=== PATIENT | male | born 1995 | race Hispanic/Latino ===

== ENCOUNTER 2018-11-29 09:41 | Emergency (ER) | payer SELFPAY ==
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
[2018-11-29] MEDS ORDERED: NA CHLORIDE 0.9% 1,000 ML ONE (11:35)
--- NOTE | 2018-11-29 21:03 | EKG ---
Test Date: 2018-11-29 Test Time: 09:46:54 Jigman: ROSALIE MEASUREMENT RESULTS: Intervals: Rate: 112 GA: 126 QRSD: 98 QT: 336 QTc: 458 [place]: P: 78 GA: 126 QRS: 92 T: 73 INTERPRETIVE STATEMENTS: Sinus tachycardia Rightward axis ST elevation, probably due to early repolarization Borderline ECG Compared to ECG 12/21/2014 21:26:18 Right-axis deviation now present ST (T wave) deviation now present Early repolarization now present Sinus bradycardia no longer present Electronically Signed On 11-29-18 21:02:07 CDT by Justino Martin
== END 2018-11-29 15:55 | disposition home or self-care (01) ==
LOC: ER 09:41
DX: S00.90XA Unspecified superficial injury of unspecified part of head, initial encounter (principal); S02.2XXA Fracture of nasal bones, initial encounter for closed fracture; S80.811A Abrasion, right lower leg, initial encounter; R41.82 Altered mental status, unspecified; F10.129 Alcohol abuse with intoxication, unspecified; Y04.2XXA Assault by strike against or bumped into by another person, initial encounter; Y93.9 Activity, unspecified; Y92.481 Parking lot as the place of occurrence of the external cause
CPT/HCPCS: 70450; 70486; 71260; 72125; 74177; 76377; 93005; 96360; 99285; J7030

== ENCOUNTER 2020-05-23 07:19 | Emergency (ER) | payer SELFPAY ==
--- NOTE | 2020-05-23 08:03 | EDPHYS ---
Physician Documentation [facility] Name: Pasquale Perez Age: 24 yrs Sex: Male : 1995 Arrival Date: 05/23/2020 Time: 07:21 Bed 18 Private MD: ED Physician Angel Torres HPI: 05/23 07:56 This 24 yrs old Male presents to ER via Ambulatory with complaints of knot on kwasi chest. 07:56 cyst on chest , sent in, present for a long time, years. Onset: The symptoms/episode kwasi began/occurred 3 year(s) ago. Severity of symptoms: At their worst the symptoms were very mild in the emergency department the symptoms are unchanged. The patient has not experienced similar symptoms in the past. Historical: - Allergies: 07:30 No Known Allergies; iw - Home Meds: 07:30 None [Active]; iw - PMHx: 07:30 None; iw - PSHx: 07:30 None; iw - Immunization history:: Adult Immunizations. - Social history:: Smoking status: . - Family history:: pertinent for. ROS: 07:56 Constitutional: Negative for fever, chills, and weight loss, Eyes: Negative for injury, kwasi pain, redness, and discharge, ENT: Negative for injury, pain, and discharge, Neck: Negative for injury, pain, and swelling, Cardiovascular: Negative for chest pain, palpitations, and edema, Respiratory: Negative for shortness of breath, cough, wheezing, and pleuritic chest pain, Abdomen/GI: Negative for abdominal pain, nausea, vomiting, diarrhea, and constipation, Back: Negative for injury and pain, : Negative for injury, bleeding, discharge, and swelling, MS/Extremity: Negative for injury and deformity, Neuro: Negative for headache, weakness, numbness, tingling, and seizure, Psych: Negative for depression, anxiety, suicide ideation, homicidal ideation, and hallucinations, Allergy/Immunology: Negative for hives, rash, and allergies, Endocrine: Negative for neck swelling, polydipsia, polyuria, polyphagia, and marked weight changes, Hematologic/Lymphatic: Negative for swollen nodes, abnormal bleeding, and unusual bruising. 07:56 Skin: Positive for cyst, lipoma. Exam: 07:56 Constitutional: This is a well developed, well nourished patient who is awake, alert, kwasi and in no acute distress. Head/Face: Normocephalic, atraumatic. Eyes: Pupils equal round and reactive to light, extra-ocular motions intact. Lids and lashes normal. Conjunctiva and sclera are non-icteric and not injected. Cornea within normal limits. Periorbital areas with no swelling, redness, or edema. ENT: Nares patent. No nasal discharge, no septal abnormalities noted. Tympanic membranes are normal and external auditory canals are clear. Oropharynx with no redness, swelling, or masses, exudates, or evidence of obstruction, uvula midline. Mucous membranes moist. Neck: Trachea midline, no thyromegaly or masses palpated, and no cervical lymphadenopathy. Supple, full range of motion without nuchal rigidity, or vertebral point tenderness. No Meningismus. Chest/axilla: Normal chest wall appearance and motion. Nontender with no deformity. No lesions are appreciated. Cardiovascular: Regular rate and rhythm with a normal S1 and S2. No gallops, murmurs, or rubs. Normal PMI, no JVD. No pulse deficits. Respiratory: Lungs have equal breath sounds bilaterally, clear to auscultation and percussion. No rales, rhonchi or wheezes noted. No increased work of breathing, no retractions or nasal flaring. Abdomen/GI: Soft, non-tender, with normal bowel sounds. No distension or tympany. No guarding or rebound. No evidence of tenderness throughout. Back: No spinal tenderness. No costovertebral tenderness. Full range of motion. Skin: Warm, dry with normal turgor. Normal color with no rashes, no lesions, and no evidence of cellulitis. MS/ Extremity: Pulses equal, no cyanosis. Neurovascular intact. Full, normal range of motion. Neuro: Awake and alert, GCS 15, oriented to person, place, time, and situation. Cranial nerves II-XII grossly intact. Motor strength 5/5 in all extremities. Sensory grossly intact. Cerebellar exam normal. Normal gait. Psych: Awake, alert, with orientation to person, place and time. Behavior, mood, and affect are within normal limits. 07:56 Skin: lipoma, no pain, mobile, no erythema. Vital Signs: 07:28 BP 120 / 73; Pulse 61; Resp 16; Temp 98.3; Pulse Ox 100% on R/A; iw MDM: 07:31 Patient medically screened. [facility] 07:58 Data reviewed: vital signs, nurses notes. Data interpreted: threat monitoring analyst: not kwasi applicable for this patient encounter. Pulse oximetry: on room air is 100 %. Administered Medications: No medications were administered Disposition: 05/23/20 08:02 Discharged to Home. Impression: Benign lipomatous neoplasm. - Condition is Stable. - Discharge Instructions: Lipoma. - Work release form, Medication Reconciliation Form, Thank You Letter, Antibiotic Education, Prescription Opioid Use form. - Follow up: Private Physician; When: 2 - 3 days; Reason: Recheck today's complaints, Continuance of care, Re-evaluation by your physician. Follow up: Dennys Finney MD; When: 2 - 3 days; Reason: Recheck today's complaints, Continuance of care, Re-evaluation by your physician. - Problem is new. - Symptoms have improved. Signatures: Angel Torres MD MD cha Williams, Irene, DEYVI RN iw Ruth Royal RN RN tw2 Corrections: (The following items were deleted from the chart) 08:13 08:02 05/23/2020 08:02 Discharged to Home. Impression: Benign lipomatous neoplasm. tw2 Condition is Stable. Forms are Medication Reconciliation Form, Thank You Letter, Antibiotic Education, Prescription Opioid Use. Follow up: Private Physician; When: 2 - 3 days; Reason: Recheck today's complaints, Continuance of care, Re-evaluation by your physician. Follow up: Dennys Finney; When: 2 - 3 days; Reason: Recheck today's complaints, Continuance of care, Re-evaluation by your physician. Problem is new. Symptoms have improved. kwasi
--- NOTE | 2020-05-23 08:03 | ER ---
Nurse's Notes [facility] Name: Pasquale Perez Age: 24 yrs Sex: Male : 1995 Arrival Date: 05/23/2020 Time: 07:21 Bed 18 Private MD: Diagnosis: Benign lipomatous neoplasm Presentation: 05/23 07:28 Chief complaint: Patient states: had some pain from a cyst on his chest that has been iw there for 5+years, was sent home from work yesterday and needs a note to go back today. Coronavirus screen: At this time, the client does not indicate any symptoms associated with coronavirus-19. Ebola Screen: Patient negative for fever greater than or equal to 101.5 degrees Fahrenheit, and additional compatible Ebola Virus Disease symptoms Patient denies exposure to infectious person. Patient denies travel to an Ebola-affected area in the 21 days before illness onset. No symptoms or risks identified at this time. Initial Sepsis Screen: Does the patient meet any 2 criteria? No. Patient's initial sepsis screen is negative. Does the patient have a suspected source of infection? No. Patient's initial sepsis screen is negative. Risk Assessment: Do you want to hurt yourself or someone else? Patient reports no desire to harm self or others. Onset of symptoms was 2015. 07:28 Method Of Arrival: Ambulatory iw 07:28 Acuity: TORRES 5 iw Triage Assessment: 08:12 General: Appears in no apparent distress. slender, Behavior is calm, cooperative, tw2 appropriate for age. Pain: Denies pain. Neuro: Level of Consciousness is awake, alert, obeys commands, Oriented to person, place, time, situation. Cardiovascular: Patient's skin is warm and dry. Respiratory: Airway is patent Respiratory effort is even, unlabored, Respiratory pattern is regular, symmetrical. GI: No signs and/or symptoms were reported involving the gastrointestinal system. : No signs and/or symptoms were reported regarding the genitourinary system. Derm: Reports "this knot on my chest and work wanted me to get it checked out". Historical: - Allergies: 07:30 No Known Allergies; iw - Home Meds: 07:30 None [Active]; iw - PMHx: 07:30 None; iw - PSHx: 07:30 None; iw - Immunization history:: Adult Immunizations. - Social history:: Smoking status: . - Family history:: pertinent for. Screenin:32 Abuse screen: Denies threats or abuse. Nutritional screening: No deficits noted. tw2 Tuberculosis screening: No symptoms or risk factors identified. Fall Risk None identified. Assessment: 07:37 General: Appears in no apparent distress. Behavior is calm, cooperative. iw 08:12 Reassessment: Patient appears in no apparent distress at this time. No changes from tw2 previously documented assessment. Patient and/or family updated on plan of care and expected duration. Pain level reassessed. Patient is alert, oriented x 3, equal unlabored respirations, skin warm/dry/pink. Vital Signs: 07:28 BP 120 / 73; Pulse 61; Resp 16; Temp 98.3; Pulse Ox 100% on R/A; iw ED Course: 07:21 Patient arrived in ED. as 07:30 Triage completed. iw 07:30 Arm band placed on. iw 07:31 Angel Torres MD is Attending Physician. kwasi 07:31 Bed in low position. Call light in reach. Pulse ox on. NIBP on. tw2 07:32 Ruth Royal, RN is Primary Nurse. tw2 08:00 Dennys Finney MD is Referral Physician. kwasi 08:12 No provider procedures requiring assistance completed. Patient did not have IV access tw2 during this emergency room visit. Administered Medications: No medications were administered Outcome: 08:02 Discharge ordered by . kwasi 08:12 Discharged to home ambulatory. tw2 08:12 Condition: stable 08:12 Discharge instructions given to patient, Instructed on discharge instructions, follow up and referral plans. Demonstrated understanding of instructions, follow-up care. 08:13 Patient left the ED. tw2 Signatures: Angel Torres MD MD cha Martinez, Amelia as Williams, Irene, RN RN iw Ruth Royal RN RN tw2
[2020-05-23 08:24] VITALS: BP 120/73; TEMP 98.3; O2SAT 100
== END 2020-05-23 08:13 | disposition home or self-care (01) ==
LOC: ER 07:19
DX: D17.9 Benign lipomatous neoplasm, unspecified (principal)
CPT/HCPCS: 99283

== ENCOUNTER 2021-03-08 11:20 | Emergency (ER) | payer SELFPAY ==
[2021-03-08] MEDS ORDERED: FENTANYL CITR 100 MCG/2 ML ONE (12:40)
[2021-03-08] MEDS ORDERED: propofoL 200 MG/20 ML VIAL IV ONE (12:41)
--- NOTE | 2021-03-08 14:03 | RAD REPORT ---
EXAM DESCRIPTION: RAD - Shoulder 1 View - 03/08/2021 1:37 pm FINDINGS: Single view left shoulder was obtained labeled post reduction. Internal rotation view shows left femoral head properly positioned in the glenohumeral joint space. A C joint is within normal range. No fracture or acute finding seen.
--- NOTE | 2021-03-08 14:38 | EDPHYS ---
Physician Documentation [facility] Name: Pasquale Perez Age: 25 yrs Sex: Male : 1995 Arrival Date: 03/08/2021 Time: 11:20 Bed 25 Private MD: ED Physician Kodak Medrano HPI: 03/08 12:40 This 25 yrs old Male presents to ER via Ambulatory with complaints of Shoulder kdr Injury. 12:40 The patient or guardian complains of decreased range of motion, deformity, pain, that kdr is acute, tenderness. left shoulder. Context: The problem was sustained at home, resulted from Patient was horse playing with his brother and fell on the shoulder. Onset: The symptoms/episode began/occurred suddenly, just prior to arrival. Modifying factors: the symptoms are alleviated by nothing. The symptoms are aggravated by movement. Associated signs and symptoms: The patient has no apparent associated signs or symptoms. Severity of symptoms: At their worst the symptoms were moderate, in the emergency department the symptoms are unchanged. Treatment prior to arrival includes: no previous treatment. The patient has not experienced similar symptoms in the past. The patient has not recently seen a physician. Historical: - Allergies: 12:07 No Known Allergies; jl7 - Home Meds: 12:07 None [Active]; jl7 - PMHx: 12:07 None; jl7 - PSHx: 12:07 None; jl7 - Immunization history:: Adult Immunizations unknown. - Social history:: Smoking status: Patient reports the use of cigarette tobacco products. ROS: 12:40 Constitutional: Negative for fever, chills, and weight loss, Eyes: Negative for injury, kdr pain, redness, and discharge, Neck: Negative for injury, pain, and swelling, Cardiovascular: Negative for chest pain, palpitations, and edema, Respiratory: Negative for shortness of breath, cough, wheezing, and pleuritic chest pain. 12:40 MS/extremity: Positive for injury or acute deformity, decreased range of motion, deformity, pain, tenderness, of the anterior aspect of left shoulder. Exam: 12:40 Constitutional: This is a well developed, well nourished patient who is awake, alert, kdr and in moderate distress. Head/Face: Normocephalic, atraumatic. 12:40 Musculoskeletal/extremity: Extremities: grossly normal except: noted in the anterior aspect of left shoulder: decreased ROM, deformity, pain, Obvious anterior dislocation by exam. Vital Signs: 11:59 BP 123 / 64; Pulse 53; Resp 20; Temp 98.5; Pulse Ox 100% ; Weight 49.9 kg; Height 5 ft. jl7 4 in. (162.56 cm); Pain 10/10; 12:46 BP 135 / 78; Pulse 64; Resp 21; Pulse Ox 100% on R/A; Pain 9/10; ap3 13:03 BP 112 / 72; Pulse 71; Resp 18; Pulse Ox 100% on R/A; ap3 13:05 BP 107 / 66; Pulse 74; Resp 17; Pulse Ox 100% on R/A; ap3 13:07 BP 110 / 60; Pulse 73; Resp 17; Pulse Ox 100% on R/A; ap3 13:11 BP 106 / 61; Pulse 56; Resp 16; Pulse Ox 100% on R/A; ap3 13:15 BP 101 / 62; Pulse 63; Resp 17; Pulse Ox 100% on R/A; ap3 13:19 BP 102 / 61; Pulse 63; Resp 16; Pulse Ox 100% on R/A; ap3 13:23 BP 112 / 71; Pulse 59; Resp 15; Pulse Ox 100% on R/A; ap3 14:30 BP 110 / 68; Pulse 54; Pulse Ox 99% on R/A; ap3 11:59 Body Mass Index 18.88 (49.90 kg, 162.56 cm) jl7 MDM: 12:40 Data reviewed: vital signs, nurses notes, radiologic studies. Counseling: I had a kdr detailed discussion with the patient and/or guardian regarding: the historical points, exam findings, and any diagnostic results supporting the discharge/admit diagnosis, radiology results. 14:37 Patient medically screened. kdr 03/08 13:35 Order name: Shoulder 1 View; Complete Time: 14:35 EDMS Administered Medications: 12:36 Drug: fentaNYL (PF) 50 mcg Route: IVP; Site: left forearm; ap3 13:32 Follow up: Response: No adverse reaction; Pain is decreased ap3 12:58 Drug: Propofol 200 mg {Note: by Dr. Medrano.} Route: IVP; Site: right forearm; ap3 13:32 Follow up: Response: No adverse reaction; RASS: Alert and Calm (0) ap3 Disposition Summary: 03/08/21 14:37 Discharge Ordered Location: Home kdr Problem: new kdr Symptoms: have improved kdr Condition: Stable kdr Diagnosis - Other dislocation of left shoulder joint kdr Followup: kdr - With: Private Physician - When: 2 - 3 days - Reason: If symptoms return, Further diagnostic work-up, Recheck today's complaints, Continuance of care, Re-evaluation by your physician Discharge Instructions: - Discharge Summary Sheet kdr - How to Use a Shoulder Immobilizer kdr - Shoulder Dislocation, [id number] kdr Forms: - Medication Reconciliation Form kdr - Thank You Letter kdr - Prescription Opioid Use kdr Prescriptions: - Tramadol 50 mg Oral Tablet - take 1 tablet by ORAL route every 8 hours as needed; 6 tablet; Refills: 0, kdr Product Selection Permitted Signatures: Dispatcher [employer] EDMS Kodak Medrano MD MD kdr Leal, Jahala, RN RN jl7 Brigitte Goodwin RN RN ap3 Corrections: (The following items were deleted from the chart) 13:35 12:37 Shoulder Left 2 View+[email or web address] ordered. EDMS EDMS
--- NOTE | 2021-03-08 14:38 | ER ---
Nurse's Notes [facility] Name: Pasquale Perez Age: 25 yrs Sex: Male : 1995 Arrival Date: 03/08/2021 Time: 11:20 Bed 25 Private MD: Diagnosis: Other dislocation of left shoulder joint Presentation: 03/08 11:59 Chief complaint: Patient states: Fell and dislocated left shoulder. Coronavirus screen: jl7 Client denies travel out of the [place] in the last 14 days. At this time, the client does not indicate any symptoms associated with coronavirus-19. Ebola Screen: No symptoms or risks identified at this time. Initial Sepsis Screen: Does the patient meet any 2 criteria? No. Patient's initial sepsis screen is negative. Does the patient have a suspected source of infection? No. Patient's initial sepsis screen is negative. Risk Assessment: Do you want to hurt yourself or someone else? Patient reports no desire to harm self or others. Onset of symptoms was March 08, 2021 at 11:00. 11:59 Method Of Arrival: Ambulatory [facility] 11:59 Acuity: TORRES 4 jl7 Triage Assessment: 12:07 General: Appears in no apparent distress. uncomfortable, Behavior is calm, cooperative, jl7 appropriate for age. Pain: Complains of pain in left shoulder Pain currently is 10 out of 10 on a pain scale. Musculoskeletal: Range of motion: limited in left shoulder. Injury Description: left shoulder dislocation. Historical: - Allergies: 12:07 No Known Allergies; jl7 - Home Meds: 12:07 None [Active]; jl7 - PMHx: 12:07 None; jl7 - PSHx: 12:07 None; jl7 - Immunization history:: Adult Immunizations unknown. - Social history:: Smoking status: Patient reports the use of cigarette tobacco products. Screenin:28 Abuse screen: Denies threats or abuse. Nutritional screening: No deficits noted. ap3 Tuberculosis screening: No symptoms or risk factors identified. Fall Risk None identified. Assessment: 12:36 General: Appears uncomfortable, Behavior is cooperative, appropriate for age, restless. ap3 Pain: Complains of pain in left shoulder Pain currently is 10 out of 10 on a pain scale. Neuro: Level of Consciousness is awake, alert, obeys commands, Oriented to person, place, time, situation, Appropriate for age. 12:48 General: conscious sedation equipment set up, and consent signed. . ap3 Vital Signs: 11:59 BP 123 / 64; Pulse 53; Resp 20; Temp 98.5; Pulse Ox 100% ; Weight 49.9 kg; Height 5 ft. jl7 4 in. (162.56 cm); Pain 10/10; 12:46 BP 135 / 78; Pulse 64; Resp 21; Pulse Ox 100% on R/A; Pain 9/10; ap3 13:03 BP 112 / 72; Pulse 71; Resp 18; Pulse Ox 100% on R/A; ap3 13:05 BP 107 / 66; Pulse 74; Resp 17; Pulse Ox 100% on R/A; ap3 13:07 BP 110 / 60; Pulse 73; Resp 17; Pulse Ox 100% on R/A; ap3 13:11 BP 106 / 61; Pulse 56; Resp 16; Pulse Ox 100% on R/A; ap3 13:15 BP 101 / 62; Pulse 63; Resp 17; Pulse Ox 100% on R/A; ap3 13:19 BP 102 / 61; Pulse 63; Resp 16; Pulse Ox 100% on R/A; ap3 13:23 BP 112 / 71; Pulse 59; Resp 15; Pulse Ox 100% on R/A; ap3 14:30 BP 110 / 68; Pulse 54; Pulse Ox 99% on R/A; ap3 11:59 Body Mass Index 18.88 (49.90 kg, 162.56 cm) jl7 ED Course: 11:20 Patient arrived in ED. mr 11:28 Kodak Medrano MD is Attending Physician. kdr 12:07 Triage completed. jl7 12:07 Arm band placed on right wrist. jl7 12:35 Brigitte Goodwin RN is Primary Nurse. ap3 12:35 Inserted saline lock: 20 gauge in right forearm, using aseptic technique. ap3 13:27 left shoulder reduction. ap3 13:29 Patient has correct armband on for positive identification. Bed in low position. Call ap3 light in reach. Side rails up X2. Adult w/ patient. manager monitoring on. Pulse ox on. NIBP on. Door closed. Noise minimized. 13:37 Shoulder 1 View In Process Unspecified. EDMS 15:10 IV discontinued, intact, bleeding controlled, No redness/swelling at site. Pressure zb dressing applied. Administered Medications: 12:36 Drug: fentaNYL (PF) 50 mcg Route: IVP; Site: left forearm; ap3 13:32 Follow up: Response: No adverse reaction; Pain is decreased ap3 12:58 Drug: Propofol 200 mg {Note: by Dr. Medrano.} Route: IVP; Site: right forearm; ap3 13:32 Follow up: Response: No adverse reaction; RASS: Alert and Calm (0) ap3 Outcome: 14:37 Discharge ordered by . kdr 15:09 Discharged to home ambulatory, with family. zb 15:09 Condition: stable 15:09 Discharge instructions given to patient, family, Instructed on discharge instructions, follow up and referral plans. Demonstrated understanding of instructions, follow-up care, medications, Prescriptions given X 1. 15:10 Patient left the ED. zb Signatures: Dispatcher [employer] EDMS Kodak Medrano MD MD kdr Rivera, Mary Hansa Pfeiffer RN RN jl7 Brigitte Goodwin RN RN ap3 Margret Olguin RN RN zb
[2021-03-08 15:22] VITALS: TEMP 98.5
[2021-03-08 15:40] VITALS: BP 110/68; O2SAT 99
== END 2021-03-08 15:10 | disposition home or self-care (01) ==
LOC: ER 11:20
PROC: 0RSKXZZ Reposition Left Shoulder Joint, External Approach (ICD-10-PCS; principal; 2021-03-08)
DX: S43.085A Other dislocation of left shoulder joint, initial encounter (principal); W50.0XXA Accidental hit or strike by another person, initial encounter; Y93.89 Activity, other specified; Y92.009 Unspecified place in unspecified non-institutional (private) residence as the place of occurrence of the external cause; F17.210 Nicotine dependence, cigarettes, uncomplicated
CPT/HCPCS: 73020; 99285; J2704; J3010

== ENCOUNTER 2021-04-19 06:09 | Emergency (ER) | payer SELFPAY ==
--- NOTE | 2021-04-19 07:16 | RAD REPORT ---
EXAM DESCRIPTION: CT - Head Brain Wo Cont - 04/19/2021 7:01 am CLINICAL HISTORY: Headache COMPARISON: 2019 TECHNIQUE: Computed axial tomography of the head was obtained. IV contrast was not requested. All CT scans are performed using dose optimization technique as appropriate and may include automated exposure control or mA/KV adjustment according to patient size. FINDINGS: An intracranial bleed is not seen . The ventricles are normal in caliber. No extra-axial fluid collection is noted. Fluid within the sinuses/ mastoids is not seen. The mastoids are clear A 11 millimeter low-density mass subcutaneous tissue anterior to the right ear unchanged from prior e xam. IMPRESSION: No acute intracranial abnormality is seen. If patient's symptoms persist MRI of the bra in would be recommended. A 11 millimeter low-density mass subcutaneous tissue anterior to the right ear. This is unchanged fro m the prior exam and may represent a cyst
--- NOTE | 2021-04-19 07:42 | ER ---
Nurse's Notes [facility] Name: Pasquale Perez Age: 25 yrs Sex: Male : 1995 Arrival Date: 04/19/2021 Time: 06:13 Bed 18 Private MD: Diagnosis: Acute lymphadenitis, unspecified Presentation: 04/19 06:28 Chief complaint: Patient states: lump behind right ear x 4 days. Coronavirus screen: df1 Vaccine status: Patient reports being unvaccinated. The client denies any previous COVID testing. Ebola Screen: Patient negative for fever greater than or equal to 101.5 degrees Fahrenheit, and additional compatible Ebola Virus Disease symptoms. Initial Sepsis Screen: Does the patient meet any 2 criteria? No. Patient's initial sepsis screen is negative. Risk Assessment: Do you want to hurt yourself or someone else? Patient reports no desire to harm self or others. Onset of symptoms was April 15, 2021. 06:28 Method Of Arrival: Ambulatory df1 06:28 Acuity: TORRES 3 df1 06:33 Note Pt presents with small lump behind right ear x 4 days. Pain increases with df1 movement. Denies any fall/injury. Historical: - Home Meds: 06:31 Unable to obtain [Active]; df1 - PMHx: 06:31 Anxiety; df1 - PSHx: 06:31 None; df1 - Immunization history:: Adult Immunizations up to date, Client reports having NOT received the Covid vaccine. - Social history:: Smoking status: Patient reports the use of cigarette tobacco products, smokes one-half pack cigarettes per day, Patient/guardian denies using alcohol, street drugs, IV drugs. Screenin:35 Abuse screen: Denies threats or abuse. Nutritional screening: No deficits noted. df1 Tuberculosis screening: No symptoms or risk factors identified. Fall Risk None identified. Assessment: 06:47 General: Appears in no apparent distress. comfortable, Behavior is calm, cooperative, jb4 appropriate for age, Reports having a constant ringing in the right ear.. Pain: Complains of pain in right ear Pain does not radiate. Pain currently is 0 out of 10 on a pain scale. at worst was 5 out of 10 on a pain scale. Quality of pain is described as pressure. Neuro: Level of Consciousness is awake, alert, obeys commands, Oriented to person, place, time, situation. Cardiovascular: Patient's skin is warm and dry. Respiratory: Airway is patent Respiratory effort is even, unlabored, Respiratory pattern is regular, symmetrical. GI: No signs and/or symptoms were reported involving the gastrointestinal system. : No signs and/or symptoms were reported regarding the genitourinary system. EENT: No signs and/or symptoms were reported regarding the EENT system. Derm: Skin is intact, Skin is pink, warm \T\ dry. Musculoskeletal: Circulation, motion, and sensation intact. Range of motion: intact in all extremities. Vital Signs: 06:28 BP 116 / 71; Pulse 64; Resp 18; Temp 99.1; Pulse Ox 99% on R/A; Weight 49.9 kg; Height df1 5 ft. 4 in. (162.56 cm); Pain 5/10; 07:41 BP 102 / 62; Pulse 72; Resp 16; Pulse Ox 98% ; Pain 0/10; tc5 06:28 Body Mass Index 18.88 (49.90 kg, 162.56 cm) df1 ED Course: 06:13 Patient arrived in ED. bp1 06:31 Triage completed. df1 06:36 Emilie Foley FNP-C is PHCP. kb 06:36 Angel Torres MD is Attending Physician. kb 06:47 Patient has correct armband on for positive identification. Call light in reach. Side jb4 rails up X 1. Pulse ox on. NIBP on. 07:01 CT Head Brain wo Cont In Process Unspecified. EDMS 07:30 Kaleigh Alonzo, RN is Primary Nurse. tc5 Administered Medications: No medications were administered Outcome: 07:41 Discharge ordered by . kb 07:55 Patient left the ED. tc5 Signatures: Dispatcher [employer] EDMS Emilie Foley FNP-C FNP-Ckb Bryson, James RN RN jb4 Belen Contreras Dawn df1 Kaleigh Alonzo, DEYVI CARNES tc5 Corrections: (The following items were deleted from the chart) 07:31 06:31 Allergies: No Known Allergies; df1 tc5
--- NOTE | 2021-04-19 07:42 | EDPHYS ---
Physician Documentation [facility] Name: Pasquale Perez Age: 25 yrs Sex: Male : 1995 Arrival Date: 04/19/2021 Time: 06:13 Bed 18 Private MD: ED Physician Angel Torers HPI: 04/19 06:42 This 25 yrs old Male presents to ER via Ambulatory with complaints of Neck kb Swelling. 06:42 The patient presents with pain, swelling. The complaints affect the right mastoid area. kb Onset: The symptoms/episode began/occurred 3 day(s) ago. Modifying factors: The symptoms are alleviated by nothing, the symptoms are aggravated by touching. Associated signs and symptoms: The patient has no apparent associated signs or symptoms. Severity of symptoms: At their worst the symptoms were moderate in the emergency department the symptoms are unchanged. The patient has not experienced similar symptoms in the past. The patient has not recently seen a physician. 06:44 Pt reports pain to right ear with pain, swelling and tenderness behind right ear that kb started 3-4 days ago. Pt has pre and postauricular lymphadenopathy, states the preauricular lymphadenopathy has been there for a long time and doesn't cause pain or bother him. . Historical: - Home Meds: 06:31 Unable to obtain [Active]; df1 - PMHx: 06:31 Anxiety; df1 - PSHx: 06:31 None; df1 - Immunization history:: Adult Immunizations up to date, Client reports having NOT received the Covid vaccine. - Social history:: Smoking status: Patient reports the use of cigarette tobacco products, smokes one-half pack cigarettes per day, Patient/guardian denies using alcohol, street drugs, IV drugs. ROS: 06:43 Constitutional: Negative for fever, chills, and weight loss. kb 06:43 ENT: Positive for ear pain, swelling and tenderness behind right ear. Exam: 06:42 Constitutional: This is a well developed, well nourished patient who is awake, alert, kb and in no acute distress. Head/Face: Normocephalic, atraumatic. Respiratory: Respirations even and unlabored. No increased work of breathing, no retractions or nasal flaring. Skin: Warm, dry with normal turgor. Normal color. MS/ Extremity: Pulses equal, no cyanosis. Neurovascular intact. Full, normal range of motion. Neuro: Awake and alert, GCS 15, oriented to person, place, time, and situation. Moves all extremities. Normal gait. Psych: Awake, alert, with orientation to person, place and time. Behavior, mood, and affect are within normal limits. 06:42 ENT: External ear(s): swelling, that is minimal, on the right mastoid area, Ear canal(s): are normal, TM's: are normal. 06:42 Neck: Lymph nodes: lymphadenopathy is appreciated, preauricular nodes, post auricular nodes. Vital Signs: 06:28 BP 116 / 71; Pulse 64; Resp 18; Temp 99.1; Pulse Ox 99% on R/A; Weight 49.9 kg; Height df1 5 ft. 4 in. (162.56 cm); Pain 5/10; 07:41 BP 102 / 62; Pulse 72; Resp 16; Pulse Ox 98% ; Pain 0/10; tc5 06:28 Body Mass Index 18.88 (49.90 kg, 162.56 cm) df1 MDM: 06:36 Patient medically screened. kb 06:42 Data reviewed: vital signs, nurses notes. Data interpreted: Pulse oximetry: on room air kb is 99 %. Interpretation: normal. 07:41 Counseling: I had a detailed discussion with the patient and/or guardian regarding: the kb historical points, exam findings, and any diagnostic results supporting the discharge/admit diagnosis, radiology results, the need for outpatient follow up, a family practitioner, to return to the emergency department if symptoms worsen or persist or if there are any questions or concerns that arise at home. 04/19 06:42 Order name: CT Head Brain wo Cont; Complete Time: 07:26 kb Administered Medications: No medications were administered Disposition: 21:15 Co-signature as Attending Physician, Angel Torres MD I agree with the assessment and kwasi plan of care. Disposition Summary: 04/19/21 07:41 Discharge Ordered Location: Home kb Condition: Stable kb Diagnosis - Acute lymphadenitis, unspecified kb Followup: kb - With: Emergency Department - When: As needed - Reason: Worsening of condition Followup: kb - With: Private Physician - When: 2 - 3 days - Reason: Recheck today's complaints, Continuance of care, Re-evaluation by your physician Discharge Instructions: - Discharge Summary Sheet kb - Lymphadenopathy kb Forms: - Medication Reconciliation Form kb - Thank You Letter kb - Antibiotic Education kb - Prescription Opioid Use kb Signatures: Dispatcher [employer] Emilie Wall, ANGELICA CHRISTINE-Angel Mack MD MD cha Furlich, Dawn df1 Kaleigh Alonzo, RN RN tc5 Corrections: (The following items were deleted from the chart) 07:31 06:31 Allergies: No Known Allergies; df1 tc5
[2021-04-19 08:04] VITALS: TEMP 99.1
[2021-04-19 08:05] VITALS: BP 102/62; O2SAT 98
== END 2021-04-19 07:55 | disposition home or self-care (01) ==
LOC: ER 06:09
DX: L04.0 Acute lymphadenitis of face, head and neck (principal); F17.210 Nicotine dependence, cigarettes, uncomplicated
CPT/HCPCS: 70450; 99283

== ENCOUNTER 2022-03-08 17:42 | Emergency (ER) | payer SELFPAY ==
--- NOTE | 2022-03-08 19:21 | RAD REPORT ---
EXAM DESCRIPTION: RAD - Shoulder Left 2 View - 03/08/2022 7:04 pm CLINICAL HISTORY: PAIN COMPARISON: No comparisons TECHNIQUE: Internal and external rotation views of the left shoulder were obtained. FINDINGS: Humeral head is dislocated anterior and inferior to the bony glenoid classically seen with anterior dislocation. No fracture changes seen. AC joint is normal in appearance. No acute or suspic ious findings. IMPRESSION: Anterior dislocation of the left humeral head.
[2022-03-08] MEDS ORDERED: IBUPROFEN 200 MG TAB PO ONE (19:33)
[2022-03-08] MEDS ORDERED: IBUPROFEN 400 MG TAB ONE (19:33)
--- NOTE | 2022-03-08 19:55 | ER ---
Nurse's Notes [facility] Name: Pasquale Perez Age: 26 yrs Sex: Male : 1995 Arrival Date: 03/08/2022 Time: 17:43 Bed Treatment Private MD: Diagnosis: Other dislocation of left shoulder joint, initial encounter Presentation: 03/08 18:12 Chief complaint: Patient states: "My Left shoulder tends to pop out a lot, the last vg1 time was in November" Stated was leaning against the bed and felt left shoulder pop out. Coronavirus screen: Vaccine status: Patient reports being unvaccinated. Client denies travel out of the [place] in the last 14 days. Ebola Screen: Patient denies exposure to infectious person. Patient denies travel to an Ebola-affected area in the 21 days before illness onset. Initial Sepsis Screen: Does the patient meet any 2 criteria? No. Patient's initial sepsis screen is negative. Does the patient have a suspected source of infection? No. Patient's initial sepsis screen is negative. Risk Assessment: Do you want to hurt yourself or someone else? Patient reports no desire to harm self or others. Onset of symptoms was March 08, 2022. 18:12 Method Of Arrival: Ambulatory vg1 18:12 Acuity: TORRES 3 vg1 Triage Assessment: 18:14 General: Appears uncomfortable, Behavior is calm, cooperative. Pain: Complains of pain vg1 in Left Shoulder Pain currently is 8 out of 10 on a pain scale. Pain began 3 hours ago. Musculoskeletal: Circulation, motion, and sensation intact. Historical: - Allergies: 18:14 No Known Allergies; vg1 - Home Meds: 18:14 Alprazolam Oral [Active]; vg1 - PMHx: 18:14 Anxiety; vg1 - PSHx: 18:14 None; vg1 - Immunization history:: Client reports having NOT received the Covid vaccine. - Social history:: Smoking status: Reported history of juuling and/or vaping. Vital Signs: 18:12 BP 119 / 65; Pulse 65; Resp 17; Temp 97.9; Pulse Ox 100% on R/A; Weight 53.52 kg; vg1 Height 5 ft. 4 in. (162.56 cm); Pain 8/10; 18:12 Body Mass Index 20.25 (53.52 kg, 162.56 cm) vg1 ED Course: 17:43 Patient arrived in ED. rg4 17:44 Angel Michel PA is PHCP. cp 17:44 Farhat Nolan MD is Attending Physician. cp 18:14 Triage completed. vg1 18:14 Arm band placed on. vg1 19:06 XRAY Shoulder LEFT 2 view In Process Unspecified. EDMS 19:35 Emma Curiel, RN is Primary Nurse. sm5 19:54 Fady Lynch MD is Referral Physician. cp Administered Medications: 19:25 Drug: Ibuprofen 600 mg Route: PO; sm5 Outcome: 19:55 Discharge ordered by . cp 20:07 Patient left the ED. tw5 Signatures: Dispatcher [employer] EDMS Angel Michel PA PA cp Garcia, Rubi rg4 Socorro Pozo, RN RN vg1 Margaret Ziegler tw5 Emma Curiel, RN RN 5
--- NOTE | 2022-03-08 19:55 | EDPHYS ---
Physician Documentation [facility] Name: Pasquale Perez Age: 26 yrs Sex: Male : 1995 Arrival Date: 03/08/2022 Time: 17:43 Bed Treatment Private MD: ED Physician Farhat Nolan HPI: 03/08 18:30 This 26 yrs old Male presents to ER via Ambulatory with complaints of Arm cp Injury. 18:30 The patient or guardian complains of decreased range of motion, deformity, pain, that cp is acute. The complaints affect the left shoulder. Context: The problem was sustained at home, patient reports history of frequent dislocations of left shoulder. today leaning against bed when he felt left shoulder dislocate. Onset: The symptoms/episode began/occurred 2 hour(s) ago. Treatment prior to arrival includes: no previous treatment. Associated signs and symptoms: The patient has no apparent associated signs or symptoms. Historical: - Allergies: 18:14 No Known Allergies; vg1 - Home Meds: 18:14 Alprazolam Oral [Active]; vg1 - PMHx: 18:14 Anxiety; vg1 - PSHx: 18:14 None; vg1 - Immunization history:: Client reports having NOT received the Covid vaccine. - Social history:: Smoking status: Reported history of juuling and/or vaping. ROS: 18:33 Constitutional: Negative for body aches, chills, fever, poor PO intake. cp 18:33 Eyes: Negative for injury, pain, redness, and discharge. cp 18:33 ENT: Negative for drainage from ear(s), ear pain, sore throat, difficulty swallowing, difficulty handling secretions. 18:33 Cardiovascular: Negative for chest pain, edema, palpitations. 18:33 Respiratory: Negative for cough, shortness of breath, wheezing. 18:33 Abdomen/GI: Negative for abdominal pain, nausea, vomiting, and diarrhea. 18:33 Back: Negative for pain at rest, pain with movement. 18:33 MS/extremity: Positive for decreased range of motion, deformity, pain, of the left shoulder, Negative for paresthesias. 18:33 Neuro: Negative for numbness. 18:33 All other systems are negative. Exam: 18:35 Constitutional: The patient appears in no acute distress, alert, awake, cp non-diaphoretic, non-toxic, well developed, well nourished, uncomfortable. 18:35 Head/Face: Normocephalic, atraumatic. cp 18:35 Neck: C-spine: vertebral tenderness, is not appreciated, crepitus, is not appreciated, ROM/movement: is normal, is supple, without pain, no range of motions limitations. 18:35 Chest/axilla: Inspection: normal, Palpation: is normal, no crepitus, no tenderness. 18:35 Cardiovascular: Rate: normal, Rhythm: regular. 18:35 Respiratory: the patient does not display signs of respiratory distress, Respirations: normal, no use of accessory muscles, no retractions, labored breathing, is not present, Breath sounds: are clear throughout, no decreased breath sounds, no stridor, no wheezing. 18:35 Abdomen/GI: Inspection: abdomen appears normal, Palpation: abdomen is soft and non-tender, in all quadrants. 18:35 Back: pain, is absent, ROM is normal. 18:35 Musculoskeletal/extremity: Extremities: noted in the left shoulder: decreased ROM, deformity, pain, tenderness, ROM: limited active range of motion, in the left shoulder, Pulses: noted to be 2+ in the left radial artery, Perfusion: the extremity is normally perfused throughout, the left arm Sensation intact. 18:35 Neuro: Orientation: to person, place \T\ time. Mentation: is normal. Vital Signs: 18:12 BP 119 / 65; Pulse 65; Resp 17; Temp 97.9; Pulse Ox 100% on R/A; Weight 53.52 kg; vg1 Height 5 ft. 4 in. (162.56 cm); Pain 8/10; 18:12 Body Mass Index 20.25 (53.52 kg, 162.56 cm) vg1 Procedures: 19:50 Reduction: of the left shoulder, using traction, Patient tolerated well. Post reduction cp film - refused by patient. patient observed with full active ROM of left shoulder post reduction procedure. MDM: 19:12 Patient medically screened. cp 19:52 Data reviewed: vital signs, nurses notes, radiologic studies, plain films. ED course: cp post reduction xrays of left shoulder ordered and patient left ED prior to repeat xrays. 03/08 18:13 Order name: XRAY Shoulder LEFT 2 view; Complete Time: 19:23 cp 03/08 19:24 Interpretation: Report reviewed. cp 03/08 19:12 Order name: Shoulder Immobilizer cp Administered Medications: 19:25 Drug: Ibuprofen 600 mg Route: PO; sm5 Disposition Summary: 03/08/22 19:55 Discharge Ordered Location: Home cp Problem: new cp Symptoms: have improved cp Condition: Stable cp Diagnosis - Other dislocation of left shoulder joint, initial encounter cp Followup: cp - With: Fady Lynch MD - When: 2 - 3 days - Reason: Recheck today's complaints Discharge Instructions: - Discharge Summary Sheet cp - Shoulder Dislocation cp Forms: - Medication Reconciliation Form cp - Thank You Letter cp - Antibiotic Education cp - Prescription Opioid Use cp Prescriptions: - Ibuprofen 600 mg Oral Tablet - take 1 tablet by ORAL route every 8 hours As needed take with food; 30 tablet; cp Refills: 0, Product Selection Permitted Addendum: 03/10/2022 14:04 Attestation: The patient's history, exam findings, diagnostics, and a summary of any j r11 interventions or procedures was reviewed in detail with Angel RESENDIZ. Signatures: Dispatcher [employer] EDMS Angel Michel PA PA cp Garcia, Victoria RN RN vg1 Emma Curiel RN RN sm5 Farhat Nolan MD MD [id number] Corrections: (The following items were deleted from the chart) 03/08 20:06 19:26 Shoulder Left 2 View+[email or web address] ordered. EDMO EDMS
[2022-03-08 20:24] VITALS: BP 119/65; TEMP 97.9; O2SAT 100
== END 2022-03-08 20:07 | disposition home or self-care (01) ==
LOC: ER 17:42
PROC: 0RSKXZZ Reposition Left Shoulder Joint, External Approach (ICD-10-PCS; principal; 2022-03-08)
DX: S43.085A Other dislocation of left shoulder joint, initial encounter (principal); F41.9 Anxiety disorder, unspecified
CPT/HCPCS: 99283

== ENCOUNTER 2023-07-07 11:49 | Emergency (ER) | payer SELFPAY ==
--- NOTE | 2023-07-07 12:12 | ER ---
Nurse's Notes [facility] Name: Pasquale Perez Age: 27 yrs Sex: Male : 1995 Arrival Date: 07/07/2023 Time: 11:49 Bed Waiting Private MD: Diagnosis: Presentation: 07/07 11:59 Note Pt seen walking out of ER. cm10 ED Course: 11:51 Patient arrived in ED. rg4 11:55 Nancy Olguin [facility]-C [facility]. sb4 11:55 Que Villagomez MD is Attending Physician. sb4 11:56 Patient's name was called from ER lobby. No response. cm10 12:10 Nancy Olguin PA-C is PHCP. sb4 12:10 Que Villagomez MD is Attending Physician. sb4 Administered Medications: No medications were administered Outcome: 12:11 Patient left the ED. cm10 Signatures: Jesica Pozo rg4 Nancy Olguin PA-C PA-C sb4 Zoila Teixeira, RN RN cm10
--- NOTE | 2023-07-08 12:12 | EDPHYS ---
Physician Documentation [facility] Name: Pasquale Perez Age: 27 yrs Sex: Male : 1995 Arrival Date: 07/07/2023 Time: 11:49 Bed Waiting Private MD: ED Physician Que Villagomez HPI: 07/07 19:38 This 27 yrs old Male presents to ER via Unassigned with complaints of Hand sb4 Injury. 19:38 pt left prior to my assessment. sb4 MDM: 11:56 Patient medically screened. sb4 Administered Medications: No medications were administered Disposition: 19:38 Chart complete. sb4 19:54 Co-signature as Attending Physician, Que Villagomez MD. rn Disposition Summary: 07/07/23 12:11 Eloped Notes: Disposition: before being seen by provider cm10 Reason: unknown cm10 Signatures: Que Villagomez MD MD rn Brown, Sophia, PA-C PAJero sb4 Zoila Teixeira RN RN cm10
== END 2023-07-07 12:11 | disposition left against medical advice (07) ==
LOC: ER 11:49
DX: Z02.9 Encounter for administrative examinations, unspecified (principal)

== ENCOUNTER 2023-11-30 16:38 | Emergency (ER) | payer SELFPAY ==
[2023-11-30] MEDS ORDERED: MORPHINE 4 MG/ML SYR ONE (18:13)
[2023-11-30] MEDS ORDERED: KETOROLAC 30 MG/ML INJ ONE (18:13)
--- NOTE | 2023-11-30 19:04 | EDPHYS ---
Physician Documentation [facility] Name: Pasquale Perez Age: 27 yrs Sex: Male : 1995 Arrival Date: 11/30/2023 Time: 16:38 Bed 9 Private MD: VIJAY Physician Angel Torres HPI: 11/29 17:30 This 27 yrs old Male presents to ER via Ambulatory with complaints of Shoulder cp Injury. 17:30 The patient or guardian complains of decreased range of motion, an injury, pain, that cp is acute, tenderness. left shoulder. Context: resulted from a fall, The patient experiences decreased range of motion, when attempts to raise arm. Onset: The symptoms/episode began/occurred yesterday, from fall. Associated signs and symptoms: Pertinent negatives: abdominal pain, chest pain, neck pain, shortness of breath, Weakness in left hand and left arm. Historical: - Allergies: 17:12 No Known Allergies; nj1 - PMHx: 17:12 Anxiety; nj1 - Immunization history:: Client reports having NOT received the Covid vaccine. - Infectious Disease History:: Denies. CDIFF, C. Auris, ESBL, MRSA (w/in 1 year), VRE (w/in 1 year), TB, . - Social history:: Smoking status: Patient reports the use of cigarette tobacco products, denies chronic smoking, but will smoke occasionally, Reported history of juuling and/or vaping. ROS: 17:35 Constitutional: Negative for body aches, chills, fever, poor PO intake, cp 17:35 Neck: Negative for pain with movement, pain at rest, stiffness, 17:35 Cardiovascular: Negative for chest pain, edema, palpitations, 17:35 Respiratory: Negative for cough, shortness of breath, wheezing, 17:35 Abdomen/GI: Negative for abdominal pain, vomiting, diarrhea, constipation, 17:35 Back: Negative for pain at rest, pain with movement, 17:35 MS/extremity: Positive for injury or acute deformity, decreased range of motion, pain, of the left shoulder, 17:35 Neuro: Negative for dizziness, headache, syncope, near syncope, weakness, 17:35 All other systems are negative, Exam: 17:40 Constitutional: The patient appears in no acute distress, alert, awake, non-toxic, well cp developed, well nourished, uncomfortable, 17:40 Head/Face: Normocephalic, atraumatic. cp 17:40 Neck: C-spine: vertebral tenderness, is not appreciated, crepitus, is not appreciated, ROM/movement: is normal, is supple, without pain, no range of motions limitations, 17:40 Chest/axilla: Inspection: normal, Palpation: is normal, no crepitus, no tenderness, 17:40 Cardiovascular: Rate: normal, Rhythm: regular, Pulses: Pulses are 2+ in left radial artery. 17:40 Respiratory: the patient does not display signs of respiratory distress, Respirations: normal, Breath sounds: are clear throughout, 17:40 Abdomen/GI: Inspection: abdomen appears normal, Palpation: abdomen is soft and non-tender, in all quadrants, 17:40 Back: pain, is absent, ROM is normal, 17:40 Musculoskeletal/extremity: Extremities: grossly normal except: noted in the left distal clavicle: deformity, pain, ROM: limited passive range of motion due to pain, in the left shoulder, the left shoulder Sensation intact. 17:40 Neuro: Orientation: to person, place \T\ time. Mentation: is normal, Vital Signs: 17:10 BP 141 / 118; Pulse 90; Resp 18; Temp 98.3(O); Pulse Ox 96% on R/A; Weight 72.57 kg; nj1 Height 5 ft. 4 in. ; Pain 10/10; 18:21 BP 117 / 79; Pulse 84; Resp 18; Pulse Ox 98% ; cp4 17:10 Body Mass Index 27.46 (72.57 kg, 162.56 cm) nj1 17:10 Pain Scale: Adult nj1 MDM: 17:17 Patient medically screened. cp 18:00 Differential diagnosis: Anterior dislocation with fracture, Anterior dislocation cp without fracture, Posterior dislocation with fracture, Posterior dislocation without fracture, clavicle fracture, AC joint separation. 19:04 Data reviewed: vital signs, nurses notes, radiologic studies, plain films, and as a cp result, I will discharge patient. 19:04 I considered the following discharge prescriptions or medication management in the cp emergency department Medications were administered in the Emergency Department. See MAR. Independent interpretation of the following test(s) in the Emergency Department X-Ray: My interpretation is images of left shoulder show distal clavicle fracture. Counseling: I had a detailed discussion with the patient and/or guardian regarding the historical points, exam findings, and any diagnostic results supporting the discharge/admit diagnosis, radiology results, the need for outpatient follow up, a orthopedic surgeon, to return to the emergency department if symptoms worsen or persist or if there are any questions or concerns that arise at home. Response to treatment: the patient's symptoms have markedly improved after treatment, and as a result, I will discharge patient. 11/29 17:17 Order name: XRAY Shoulder LEFT 2 view cp 11/29 17:17 Order name: Sling; Complete Time: 17:19 cp Administered Medications: 18:21 Drug: Ketorolac IM 30 mg IM once Route: IM; Site: right ventrogluteal; cp4 19:12 Follow up: Response: No adverse reaction cp4 18:21 Drug: morphine IM 4 mg IM once Route: IM; Site: right deltoid; cp4 19:12 Follow up: Response: No adverse reaction cp4 Disposition Summary: 11/30/23 19:04 Discharge Ordered Notes: Location: Home cp Problem: new cp Symptoms: have improved cp Condition: Stable cp Diagnosis - Displaced fracture of lateral end of left clavicle, initial encounter for closed cp fracture Followup: cp - With: Fady Lynch MD - When: 2 - 3 days - Reason: left clavicle fracture Discharge Instructions: - Discharge Summary Sheet cp - Clavicle Fracture cp - How to Use a Sling cp Forms: - Medication Reconciliation Form cp - Antibiotic Education cp - Prescription Opioid Use cp - Patient Portal Instructions cp - Leadership Thank You Letter cp Prescriptions: - Diclofenac Sodium 75 mg Oral Tablet Sustained Release - take 1 tablet ORAL route 2 times per day; 30 tablet; Refills: 0, Product cp Selection Permitted - Tramadol 50 mg Oral Tablet - take 1 tablet ORAL route every 8 hours as needed; 12 tablet; Refills: 0, cp Product Selection Permitted Signatures: Dispatcher [employer] Angel Mendoza PA PA cp Darlene Aragon RN RN Felicity Carmen cp4 Corrections: (The following items were deleted from the chart) 11/30 16:47 16:43 MS/extremity: Positive for injury or acute deformity, decreased range of motion, cp pain, of the left shoulder, cp 16:47 16:43 Back: Negative for pain at rest, pain with movement, cp cp 16:47 16:43 Neck: Negative for pain with movement, pain at rest, stiffness, cp cp 16:47 16:43 Respiratory: Negative for cough, shortness of breath, wheezing, cp cp 16:47 16:43 Abdomen/GI: Negative for abdominal pain, vomiting, diarrhea, constipation, cp cp 16:47 16:43 Cardiovascular: Negative for chest pain, edema, palpitations, cp cp 16:47 16:43 Constitutional: Negative for body aches, chills, fever, poor PO intake, cp cp 16:47 16:43 Neuro: Negative for dizziness, headache, syncope, near syncope, weakness, cp cp 16:47 16:43 All other systems are negative, cp cp
--- NOTE | 2023-11-30 19:04 | ER ---
Nurse's Notes [facility] Name: Pasquale Perez Age: 27 yrs Sex: Male : 1995 Arrival Date: 11/30/2023 Time: 16:38 Bed 9 Private MD: Diagnosis: Displaced fracture of lateral end of left clavicle, initial encounter for closed fracture Presentation: 11/29 17:10 Chief complaint: Patient states: Fell yesterday and has had left shoulder "out of [facility]" since. Coronavirus screen: Vaccine status: Patient reports being unvaccinated. Ebola Screen: Patient denies travel to an Ebola-affected area in the 21 days before illness onset. Initial Sepsis Screen: Does the patient meet any 2 criteria? HR > 90 bpm. No. Patient's initial sepsis screen is negative. Does the patient have a suspected source of infection? No. Patient's initial sepsis screen is negative. Risk Assessment: Do you want to hurt yourself or someone else? Patient reports no desire to harm self or others. Onset of symptoms was November 29, 2023. 17:10 Method Of Arrival: Ambulatory [facility] 17:10 Acuity: TORRES 3 nj1 Triage Assessment: 17:13 General: Appears in no apparent distress. uncomfortable, Behavior is calm, cooperative, nj1 appropriate for age. Pain: Complains of pain in left shoulder Pain currently is 10 out of 10 on a pain scale. 19:12 Injury Description: contusion. cp4 Historical: - Allergies: 17:12 No Known Allergies; nj1 - PMHx: 17:12 Anxiety; nj1 - Immunization history:: Client reports having NOT received the Covid vaccine. - Infectious Disease History:: Denies. CDIFF, C. Auris, ESBL, MRSA (w/in 1 year), VRE (w/in 1 year), TB, . - Social history:: Smoking status: Patient reports the use of cigarette tobacco products, denies chronic smoking, but will smoke occasionally, Reported history of juuling and/or vaping. Screenin:19 [facility] ED Fall Risk Assessment (Adult) History of falling in the last 3 months, cp4 including since admission No falls in past 3 months (0 pts). [facility] ED Fall Risk Assessment (Adult) History of falling in the last 3 months, including since admission No falls in past 3 months (0 pts) Confusion or Disorientation No (0 pts) Intoxicated or Sedated No (0 pts) Impaired Gait No (0 pts) Mobility Assist Device Used No (0 pt) Altered Elimination No (0 pt) Score/Fall Risk Level 0 - 2 = Low Risk Oriented to surroundings, Maintained a safe environment, Assessed \\T\\ reinforced patient's understanding of fall precautions, Hourly rounding (assess needs \\T\\ fall precautionary measures) done. Abuse screen: Denies threats or abuse. Nutritional screening: No deficits noted. Tuberculosis screening: No symptoms or risk factors identified. Assessment: 18:19 General: Appears uncomfortable, Behavior is calm, cooperative, appropriate for age. cp4 Pain: Complains of pain in left shoulder. Musculoskeletal: Reports pain in left shoulder. Vital Signs: 17:10 BP 141 / 118; Pulse 90; Resp 18; Temp 98.3(O); Pulse Ox 96% on R/A; Weight 72.57 kg; nj1 Height 5 ft. 4 in. ; Pain 10/10; 18:21 BP 117 / 79; Pulse 84; Resp 18; Pulse Ox 98% ; cp4 17:10 Body Mass Index 27.46 (72.57 kg, 162.56 cm) nj1 17:10 Pain Scale: Adult nj1 ED Course: 16:43 Patient arrived in ED. ra3 17:02 Angel Michel PA is PHCP. cp 17:02 Angel Torres MD is Attending Physician. cp 17:12 Triage completed. nj1 17:12 Arm band placed on right wrist. nj1 17:19 Sling applied to left arm. nj1 18:10 Felicity Juárez is Primary Nurse. cp4 18:19 Bed in low position. Call light in reach. Side rails up X 1. Provided Education on: cp4 shoulder pain. 18:19 No provider procedures requiring assistance completed. Patient did not have IV access cp4 during this emergency room visit. 18:56 XRAY Shoulder LEFT 2 view In Process Unspecified. EDMS 19:02 Fady Lynch MD is Referral Physician. cp Administered Medications: 18:21 Drug: Ketorolac IM 30 mg IM once Route: IM; Site: right ventrogluteal; cp4 19:12 Follow up: Response: No adverse reaction cp4 18:21 Drug: morphine IM 4 mg IM once Route: IM; Site: right deltoid; cp4 19:12 Follow up: Response: No adverse reaction cp4 Medication: 18:19 VIS not applicable for this client. cp4 Outcome: 19:04 Discharge ordered by . cp 19:10 Discharged to home ambulatory, cp4 19:10 Condition: stable 19:10 Discharge instructions given to patient, Instructed on discharge instructions, follow up and referral plans. medication usage, Demonstrated understanding of instructions, follow-up care, medications, 19:11 Patient left the ED. cp4 Signatures: Dispatcher [employer] EDMS Angel Michel PA PA cp Darlene Aragon RN RN nj1 Felicity Juárez cp4 Marisel Winkler ra3 Corrections: (The following items were deleted from the chart) 17:13 17:10 BP 141 / 118; Pulse 115bpm; Resp 18bpm; Pulse Ox 96% RA; Temp 98.3F Oral; 72.57 nj1 kg; Height 5 ft. 4 in.; BMI: 27.4; Pain 1010, Adult; nj1
[2023-11-30 19:32] VITALS: BP 117/79; TEMP 98.3; O2SAT 98
--- NOTE | 2023-11-30 19:45 | RAD REPORT ---
EXAM DESCRIPTION: RAD - Shoulder Left 2 View - 11/30/2023 6:54 pm CLINICAL HISTORY: Left shoulder pain status post fall FINDINGS: Markedly displaced fracture distal left clavicle Widening of the coracoclavicular space may indicate a ligamentous injury. AC joint is intact
== END 2023-11-30 19:11 | disposition home or self-care (01) ==
LOC: ER 16:38
DX: S42.032A Displaced fracture of lateral end of left clavicle, initial encounter for closed fracture (principal)
CPT/HCPCS: 96372; 99284